=== PATIENT | male | born 1990 | race Caucasian/White ===

== ENCOUNTER 2023-01-26 16:36 | Emergency (ER) | payer OTHER ==
[2023-01-26] MEDS ORDERED: Tetracaine HCl/PF 0.5% 4 ML Bottle EYELF ONE (17:30)
[2023-01-26] MEDS ORDERED: Erythromycin Base 0.5% Ophth Oint 1 GM Tube EYELF ONE (19:17)
[2023-01-26] MEDS ORDERED: Acetaminophen/HYDROcodone 325-5 MG Tab PO ONE (19:25)
[2023-01-26] MEDS ORDERED: Ondansetron 4 MG Tab.DIS PO ONE (19:25)
== END 2023-01-26 19:35 | disposition home or self-care (01) ==
LOC: MW.ED 16:36
DX: T15.92XA Foreign body on external eye, part unspecified, left eye, initial encounter (principal)
CPT/HCPCS: 99283; A9270; J3490